=== PATIENT | male | born 1965 | race Caucasian/White ===

== ENCOUNTER → 2020-06-10 05:35 | Outpatient (CLI) | payer BC, SELFPAY ==
[2020-06-10 19:33] LABS: SARS-CoV-2 RNA PCR Negative
== END ==
PROVIDERS: PCP Emergency Medicine; Visit Provider Internal Medicine Gastroenterology
DX: Z01.812 Encounter for preprocedural laboratory examination (principal); Z20.822 Contact with and (suspected) exposure to COVID-19
CPT/HCPCS: C9803; U0003; U0005

== ENCOUNTER 2020-06-13 00:57 | Day surgery (SDC) | payer BC, SELFPAY ==
[2020-05-30 15:58] VITALS: BMI 29.8
[2020-06-13 09:00] VITALS: BP 121/82; PULSE 80; RESP 18; TEMP 36.7; O2SAT 100
[2020-06-13] MEDS: LACTATED RINGERS 1,000 ML 150 ML IV CONT (09:16)
--- NOTE | 2020-06-13 09:56 | WPDANESEPPF ---
Anes - Initial Pre Proc Eval Procedure: Operation Date: 06/13/20 10:00 Proposed Procedures p Colonoscopy - Abundio Elkins MD Date/Time: 06/13/20 09:56 Surgeon: Abundio Elkins MD Pre Op Diagnosis: positive cologuard Patient Data Age: 54 Gender: M Height: 5 ft 11 in Weight: 97.8 kg Last Vital Signs Temp 98.1 F 06/13/20 09:00 Pulse 80 06/13/20 09:00 Resp 18 06/13/20 09:00 BP 121/82 06/13/20 09:00 Pulse Ox 100 06/13/20 09:00 Allergies Allergy/AdvReac Type Severity Reaction Status Date / Time No Known Allergies Allergy Verified 06/13/20 08:59 Home Medications Medication Instructions Recorded Confirmed Type lisinopril 20 1 tablet PO DAILY #90 tablet 02/15/20 05/30/20 Rx mg-hydrochlorothiazide 25 mg tablet pantoprazole 40 mg tablet,delayed See Rx Instructions .ROUTE 02/15/20 05/30/20 Rx release .COMPLEX #90 tablet fenofibrate 40 mg tablet 40 mg PO DAILY #90 tablet 03/17/20 05/30/20 Rx Patient hx anesthesia problems: none Family hx anesthesia problems: none PMFSH Past Medical History Medical History (Updated 06/13/20 @ 09:55 by Fabio Xavier MD) HTN (hypertension) Hyperlipidemia Social History Social History Smoking status: Never smoker Alcohol intake: never Substance use type: does not use Living arrangements: with family Spiritual care concerns: No Anes - Eval Final PreProcedure Day of Procedure 06/13/20 09:56 Patient weight: overweight Heart: regular rate and rhythm Lungs: clear to auscultation Airway: Mallampati scale class II Neurological: alert and oriented Last oral intake: >/= 8 hours ASA classification: II Emergent: no Anesthetic plan: proceed Anesthesia type and monitoring: general GIVS and standard monitoring Informed Consent: The patient's anesthetic plan and its attendant risks and benefits were discussed with the patient/family/POA. Questions were solicited and answers provided to the satisfaction of the patient/family/POA.
[2020-06-13 10:22] VITALS: BP 122/83; PULSE 80; RESP 18; O2SAT 96
[2020-06-13 10:32] VITALS: BP 101/68; PULSE 68; RESP 18; O2SAT 98
[2020-06-13 10:41] VITALS: BP 107/74; PULSE 62; RESP 18; O2SAT 99
--- NOTE | 2020-06-15 14:56 | PM.HPGS ---
History of Present Illness History of Present Illness Consent: Risks, benefits, and alternatives have been discussed and questions answered. Patient agrees to proceed with procedure. Chief complaint: positive cologuard Narrative: Donato Casarez is a 54 year old male for colon cancer screening Review of Systems Review of Systems: All systems reviewed & are unremarkable except as noted in HPI and below PMFSH Past Medical History Medical History HTN (hypertension) Hyperlipidemia Social History Social History Smoking status: Never smoker Alcohol intake: never Substance use type: does not use Living arrangements: with family Spiritual care concerns: No Meds Home Medications and Allergies Home Medications Medication Instructions Recorded Confirmed Type lisinopril 20 1 tablet PO DAILY #90 tablet 02/15/20 05/30/20 Rx mg-hydrochlorothiazide 25 mg tablet pantoprazole 40 mg tablet,delayed See Rx Instructions .ROUTE 02/15/20 05/30/20 Rx release .COMPLEX #90 tablet fenofibrate 40 mg tablet 40 mg PO DAILY #90 tablet 03/17/20 05/30/20 Rx Allergies Allergy/AdvReac Type Severity Reaction Status Date / Time No Known Allergies Allergy Verified 06/13/20 08:59 Exam Const: General: alert Orientation/consciousness: patient oriented x3 Resp: Auscultation: clear to auscultation bilaterally Cardio: Rhythm: regular rhythm GI: GI Palp: Yes Soft to palpation and No Tenderness to palpation present (GI) Neuro: General: patient oriented x3 Assessment and Plan Assessment and plan (1) Colon cancer screening: Code(s): Z12.11 - Encounter for screening for malignant neoplasm of colon Status: Acute Assessment and Plan: Colonoscopy with possible biopsy or polypectomy or cautery or injection of substances.
== END 2020-06-13 10:50 | disposition home or self-care (01) ==
PROVIDERS: PCP Emergency Medicine; Visit Provider Internal Medicine Gastroenterology
PROC: 0DJD8ZZ Inspection of Lower Intestinal Tract, Via Natural or Artificial Opening Endoscopic (ICD-10-PCS; CPT 45378; principal; 2020-06-13 10:00)
DX: Z12.11 Encounter for screening for malignant neoplasm of colon (principal); D12.5 Benign neoplasm of sigmoid colon; D12.4 Benign neoplasm of descending colon; R19.5 Other fecal abnormalities; I10 Essential (primary) hypertension; E78.5 Hyperlipidemia, unspecified
CPT/HCPCS: 45385; 88305; J2001; J2704; J7120